=== PATIENT | female | born 1990 | race Asian ===

== ENCOUNTER 2020-05-24 10:36 | Emergency (ER) | payer SELFPAY ==
[~2020-05-24] VITALS: Ht 154.9 cm; Wt 89.0 kg
[~2020-05-24 10:36] MED LIST: PNV1TABL25 PO
[2020-05-24 11:35] VITALS: BP 163/116
[2020-05-24] MEDS ORDERED: TRIA80OI TP (12:03)
--- NOTE | 2020-05-24 12:03 | PHYS DOC ---
Past Medical History Past Medical History: Hypertension Past Surgical History: Tonsillectomy Smoking Status: Current Every Day Smoker Alcohol Use: Occasionally Drug Use: None General Adult EDM: Chief Complaint: SKIN RASH/ABSCESS HPI: HPI: Patient is a 29 year old female who presents with 2 weeks of a eczema type itchy rash and went to urgent care last week and they gave her a Medrol Dosepak and told her to use hydrocortisone cream. She states she is not getting better. She states in fact is getting worse on her face. She does have a lymph node right below her right ear that is now swollen. Patient denies any new soaps, perfumes, lotions, medicines, ear pain, shortness of breath, swelling of the throat, itching in the throat, fever. She denies any pain. She states that they did just get a new puppy but this had started before they got the dog. Review of Systems: Review of Systems: Constitutional: Denies fever or chills. [] Eyes: Denies change in visual acuity. [] HENT: Denies nasal congestion or sore throat. [] Respiratory: Denies cough or shortness of breath. [] Cardiovascular: Denies chest pain or edema. [] GI: Denies abdominal pain, nausea, vomiting, bloody stools or diarrhea. [] : Denies dysuria. [] Musculoskeletal: Denies back pain or joint pain. [] Integument: +Generalized itchy body rash. [] Neurologic: Denies headache, focal weakness or sensory changes. [] Endocrine: Denies polyuria or polydipsia. [] Lymphatic: + Below the right ear swollen glands. [] Psychiatric: Denies depression or anxiety. [] Heart Score: Risk Factors: Risk Factors: DM, Current or recent (<one month) smoker, HTN, HLP, family history of CAD, obesity. Risk Scores: Score 0 - 3: 2.5% MACE over next 6 weeks - Discharge Home Score 4 - 6: 20.3% MACE over next 6 weeks - Admit for Clinical Observation Score 7 - 10: 72.7% MACE over next 6 weeks - Early Invasive Strategies Allergies: Allergies: Allergies Coded Allergies Type Severity Reaction Last Updated Verified No Known Drug Allergies 09/03/14 No Physical Exam: PE: Constitutional: Well developed, well nourished, no acute distress, non-toxic appearance. [] HENT: Normocephalic, atraumatic, bilateral external ears normal, oropharynx moist, no oral exudates, nose normal. Right under the ear lymph node swollen. [] Eyes: PERRLA, EOMI, conjunctiva normal, no discharge. [] Neck: Normal range of motion, no tenderness, supple, no stridor. [] Cardiovascular:Heart rate regular rhythm, no murmur [] Lungs & Thorax: Bilateral breath sounds clear to auscultation [] Abdomen: Bowel sounds normal, soft, no tenderness, no masses, no pulsatile masses. [] Skin: Warm, dry, no erythema, Generalized body rash. [] Back: No tenderness, no CVA tenderness. [] Extremities: No tenderness, no cyanosis, no clubbing, ROM intact, no edema. [] Neurologic: Alert and oriented X 3, normal motor function, normal sensory function, no focal deficits noted. [] Psychologic: Affect normal, judgement normal, mood normal. [] Current Patient Data: Vital Signs: Vital Signs Date Time Temp Pulse Resp B/P (MAP) Pulse Ox O2 Delivery O2 Flow Rate FiO2 05/24/20 11:35 98.1 88 16 163/116 (132) 98 Room Air 98.1 EKG: EKG: [] Radiology/Procedures: Radiology/Procedures: [] Course & Med Decision Making: Course & Med Decision Making Pertinent Labs and Imaging studies reviewed. (See chart for details) See HPI. Patient states she does not have insurance and does not have a primary care doctor. Patient is educated that she needs to see a industrial safety engineer. Patient can keep using the hydrocortisone on her face but I will give her a prescription for tri-Methasone cream for her arms and her bilateral shins. The rash is more so on her upper arms bilaterally, all over her face and neck and bilateral shins. There is no signs of infection or drainage. No cellulitis to the skin. Afebrile. Alert and oriented x4. Ambulatory with steady gait. Speaks in full clear sentences. No rash or swelling to the inside of the mouth, throat or tongue. [] Dragon Disclaimer: Dragon Disclaimer: This electronic medical record was generated, in whole or in part, using a voice recognition dictation system. Departure Departure Impression: Primary Impression: Eczema Qualified Codes: L30.9 - Dermatitis, unspecified Disposition: 01 DC HOME SELF CARE/HOMELESS Condition: STABLE Referrals: NO PCP (PCP) Patient Instructions: Eczema Additional Instructions: Follow up with a industrial safety engineer as soon as possible. Take benadryl to control itching further. If your mouth begins to swelling or your throat call 911. Scripts Triamcinolone Acetonide (TRIAMCINOLONE ACETONIDE) 80 Gm Oint...g. 1 VIPIN TP BID, #30 GM 1 Refill DO NOT PUT ON FACE Prov: REMI AYALA APRN 05/24/20 REMI AYALA APRN May 24, 2020 12:03
== END 2020-05-24 12:15 | disposition home or self-care (01) ==
LOC: ER 10:36
DX: L30.9 Dermatitis, unspecified (principal); I10 Essential (primary) hypertension; F17.200 Nicotine dependence, unspecified, uncomplicated
CPT/HCPCS: 99283